=== PATIENT | male | born 1955 | race Caucasian/White ===

== ENCOUNTER → 2017-09-22 | Outpatient (CLI) | payer OTHER ==
[~2017-09-22] MED LIST: ALFU1TAB2 PO; ASPI-435 PO; LSN40 PO; NIFE60TA66 PO
[2017-09-22 12:48] LABS: HEMOGLOBIN A1C 5.7 % (4.5-5.6)
[2017-09-22 12:56] LABS: ALBUMIN 3.8 gm/dl (3.4-5.0); ALT/SGPT 36 U/L (12-78); AST/SGOT 17 U/L (15-37); BLOOD UREA NITROGEN 26 mg/dl (7-18); CALCIUM 8.7 mg/dl (8.5-10.1); CARBON DIOXIDE 25 mmol/L (21-32); CHOLESTEROL 173 mg/dl (0-200); CREATININE 1.44 mg/dl (0.60-1.40); GLUCOSE 98 mg/dl (70-99); POTASSIUM 3.9 mmol/L (3.5-5.1); SODIUM 140 mmol/L (136-145)
[2017-09-22 13:14] LABS: ALKALINE PHOSPHATASE 76 U/L (45-117); LDL CHOLESTEROL CALCULATED 105 mg/dl; TOTAL PROTEIN 7.6 gm/dl (6.4-8.2)
== END | disposition home or self-care (01) ==
LOC: C.LAB1850 10:43
PROVIDERS: ATTEND Internal Medicine
DX: I10 Essential (primary) hypertension (principal); R73.01 Impaired fasting glucose; R35.8 Other polyuria; Z11.59 Encounter for screening for other viral diseases

== ENCOUNTER 2020-05-14 10:25 | Observation (INO) ==
--- NOTE | 2020-04-11 14:57 | PAT Medication Instructions ---
Medication Instructions Date of Service April 11, 2020 Home Medications Medication Instructions Recorded lisinopril 40 mg tablet 40 mg PO DAILY #90 tab 10/17/19 nifedipine 90 mg tablet,extended 90 mg PO DAILY #90 tab 10/17/19 release 24 hr alfuzosin 10 mg tablet,extended 10 mg PO DAILY #90 tab 03/07/20 release 24 hr lisinopril 40 mg tablet 40 mg PO DAILY nifedipine 90 mg tablet,extended release 24 hr 90 mg PO DAILY alfuzosin 10 mg tablet,extended release 24 hr 10 mg PO DAILY calcium 600 mg PO QAM cholecalciferol (vitamin D3) [Vitamin D3] 125 mcg PO QAM magnesium 250 mg PO QAM omega-3 fatty acids-vitamin E [Fish Oil] 1 cap PO QAM vitamin B complex 1 tab PO QAM zinc 25 mg PO QAM STOP taking 2 weeks before surgery omega-3 fatty acids-vitamin E [Fish Oil] 1 cap PO QAM DO NOT take the morning of surgery calcium 600 mg PO QAM cholecalciferol (vitamin D3) [Vitamin D3] 125 mcg PO QAM magnesium 250 mg PO QAM vitamin B complex 1 tab PO QAM zinc 25 mg PO QAM Take evening before surgery lisinopril 40 mg tablet 40 mg PO DAILY nifedipine 90 mg tablet,extended release 24 hr 90 mg PO DAILY alfuzosin 10 mg tablet,extended release 24 hr 10 mg PO DAILY Nothing to eat or drink after midnight. Other Notes If you have any questions please call us at [phone] or [phone] or [phone] or [phone]
--- NOTE | 2020-04-15 09:30 | Anesthesiology Consultation ---
Date of Service April 15, 2020 Assessment & Plan (1) Encounter for pre-operative examination: COVID Status: As of 04/15 assessment, patient denies travel to endemic area, known exposure/sick contacts, or symptoms of COVID19. Patient instructed that they and their household members must follow strict social distancing guidelines, wear a mask in public and avoid travel for 14 days prior to surgery. Preoperative COVID19 testing to be completed prior to surgery per surgeon's arra ngements. Patient made aware to self-isolate as much as possible between COVID testing and surgery. Chart Review Chart Review: Acceptable Risk for Surgery and Patient seen in Pre Admission Testing Teaching & Discussion Instructed NPO after midnight before surgery, except medications with 15 cc of water. Medication instructions provided according to the PAT guidelines. History Surgery Operation Date: 05/14/20 08:50 Proposed Procedures p Right Total Hip Arthroplasty - Dino Thomas MD Height/Weight Height: 5 ft 9.5 in Weight: 96 kg Allergies Allergy/AdvReac Type Severity Reaction Status Date / Time No Known Allergies Allergy Verified 04/09/20 14:37 Medications Home Medications Medication Instructions Recorded Confirmed Last Taken calcium 600 mg PO QAM 04/09/20 04/09/20 Unknown cholecalciferol (vitamin D3) 125 mcg PO QAM 04/09/20 04/09/20 Unknown [Vitamin D3] magnesium 250 mg PO QAM 04/09/20 04/09/20 Unknown omega-3 fatty acids-vitamin E 1 cap PO QAM 04/09/20 04/09/20 Unknown [Fish Oil] vitamin B complex 1 tab PO QAM 04/09/20 04/09/20 Unknown zinc 25 mg PO QAM 04/09/20 04/09/20 Unknown alfuzosin 10 mg PO QPM 04/15/20 Unknown lisinopril 40 mg PO QPM 04/15/20 Unknown nifedipine [Procardia XL] 90 mg PO QPM 04/15/20 Unknown Past Medical History Medical History Arthritis of right hip BPH (benign prostatic hyperplasia) Hypertension Osteoarthritis Exercise / Class Metabolic Activity II 4-5 Yardwork/Stairs/Walk up hill (Denies CP or SOB with 1 FOS) Past Family History Family History Father Alzheimer disease Hypertension Stroke Mother Heart disease Arthritis Uncle Stroke Grandfather (Paternal) Stroke Denies family history of Ovarian cancer Prostate cancer Myocardial infarction Breast cancer Colorectal cancer Past Surgical History Surgical History H/O hernia repair History of colonoscopy History of herniorrhaphy History of tooth extraction Past Anesthesia History No Hx of Anesthesia Complications and No Family Hx of Anesthesia Complications History of PONV No Hx of PONV and No Hx of Motion Sickness Social History Smoking Status: Former smoker tobacco type: cigarettes Do You Dip or Chew Tobacco: No Smoking End Date: 25 YEARS AGO Hx Alcohol Use: Yes Alcohol type: beer and wine alcohol intake frequency: a few times a month Hx Substance Use: No substance use type: does not use Review of Systems Pt denies any recent chest pain, shortness of breath, palpitations, cough, fever, URI, or uncontrolled acid reflux. Physical Exam Vital Signs BP: 144/91 P: 67bpm SPO2: 97% RA T: 98.6 F R: 12 ENMT Mouth: + dentition abnormality (many missing molars), + dentures (upper partial) and + macroglossia; no chipped teeth and no loose teeth Thyromental Distance: > or= 3.5 Finger Breadths Mallampati Class: II Neck normal visual inspection and + limited neck extension (mildly); no facial hair Respiratory normal respiratory effort Auscultation: lungs clear to auscultation bilaterally Cardiovascular Rate/Rhythm: regular rate and regular rhythm Heart Sounds: no murmur Testing Laboratory Results 04/15/20 09:44 04/15/20 09:44 PT 10.3 Seconds (9.0-12.0) 04/15/20 09:44 INR 1.0 (0.9-1.1) 04/15/20 09:44 APTT 27.6 Seconds (21.0-31.0) 04/15/20 09:44 Blood Type O Negative 04/15/20 09:44 Antibody Screen NEGATIVE 04/15/20 09:44 Electrocardiogram Date: 04/15/20 Findings: + NSR @ (60bpm) Left axis deviation. Chest X-Ray Date: 04/15/20 Findings: + NAD
--- NOTE | 2020-04-15 10:05 | XRay Report ---
TWO VIEW CHEST CLINICAL HISTORY: Preoperative examination. FINDINGS: PA and lateral chest radiographs are obtained. No prior studies are available for compariso n at the time of dictation. The cardiomediastinal silhouette is unremarkable. There is mild bibasila r scarring/atelectasis. The lungs and pleural spaces are otherwise clear. There is no pneumothorax. T he bony thorax appears intact. IMPRESSION: No active disease in the chest. ACT 112: Negative or not required by law. Electronically signed by: Ayush Alexander M.D. 04/15/2020 10:03 AM
[2020-04-15 10:41] LABS: Basophils # (auto) 0.03 K/uL (0-0.2); Basophils % (auto) 0.4 %; Eosinophils # (auto) 0.09 K/uL (0-0.5); Eosinophils % (auto) 1.3 %; Hematocrit (blood only) 44.6 % (42-52); Hemoglobin 14.4 g/dL (14.0-18.0); Immature Granulocytes # (auto) 0.01 K/uL (0.00-0.02); Immature Granulocytes % (auto) 0.1 %; Lymphocytes # (auto) 1.96 K/uL (1.2-3.4); Lymphocytes % (auto) 27.6 %; Mean Corpuscular Hemoglobin 30.1 pg (25-34); Mean Corpuscular Hgb Conc 32.3 g/dL (32-36); Mean Corpuscular Volume 93.3 fL (80-100); Monocytes # (auto) 0.63 K/uL (0.11-0.59); Monocytes % (auto) 8.9 %; Neutrophils # (auto) 4.39 K/uL (1.4-6.5); Neutrophils % (auto) 61.7 %; Platelet Count 265 K/uL (130-400); RDW Coefficient of Variation 13.6 % (11.5-14.5); RDW Standard Deviation 46.4 fL (36.4-46.3); Red Blood Count 4.78 M/uL (4.7-6.1); White Blood Count 7.11 K/uL (4.8-10.8)
[2020-04-15 10:50] LABS: BUN Creatinine Ratio 15.4 (10-20); Calcium 8.8 mg/dl (8.5-10.1); Creatinine Clr Calc Pharmacy 63.1 ml/min; Est GFR (African American) 65.8; Est GFR (Non-African American) 56.7; Potassium 4.1 mmol/L (3.5-5.1)
[2020-04-15 11:04] LABS: Partial Thromboplastin Time 27.6 Seconds (21.0-31.0); Prothrombin Time 10.3 Seconds (9.0-12.0)
--- NOTE | 2020-04-15 17:01 | Electrocardiogram Report ---
Test Reason : Blood Pressure : / mmHG Vent. Rate : 060 BPM Atrial Rate : 060 BPM P-R Int : 166 ms QRS Dur : 114 ms QT Int : 440 ms P-R-T Axes : 065 -39 036 degrees QTc Int : 440 ms Normal sinus rhythm Left axis deviation Abnormal ECG No previous ECGs available Confirmed by Joseph Hanley ([id number]) on 04/15/2020 5:01:02 PM Referred By: Dino Thomas Confirmed By:Jun Hanley
--- NOTE | 2020-05-10 14:03 | History and Physical Report ---
DATE OF ADMISSION: 05/14/2020 CHIEF COMPLAINT: Right hip pain and discomfort and stiffness. 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 He has about a 2-year history of gradually increasing right hip pain and discomfort that has gotten worse particularly over the past year. Symptoms were initially pretty manageable, gotten significantly worse to the point where he is having trouble walking any distance. He did see a chiropractor, which did not really help at all. He limps pretty much all the time and more as the day goes on. He goes to [employer] meetings and has difficulty getting from place to place due to the walking required. He has been through therapy, which has not helped either. He has previously played golf, but cannot do that due to his hip pain. NSAIDs provided minimal relief. He would like to have his right hip replaced. PAST MEDICAL HISTORY: Hypertension. PAST SURGICAL HISTORY: Includes herniorrhaphy. ALLERGIES: None. CURRENT MEDICATIONS: Include various anti-inflammatories. SOCIAL HISTORY: A 65-year-old male. He is a semi-retired field sales associate. Lives in [place]. He is . One child. Rare alcohol intake. FAMILY HISTORY: Significant for heart disease and blood clots. REVIEW OF SYSTEMS: Negative for diabetes, neurologic problem, vascular problem, bleeding disorders. No chest pain or shortness of breath. No history of DVT or PE. PHYSICAL EXAMINATION: GENERAL: Shows a pleasant, middle-aged male, looks to be in good health. HEENT: Benign. NECK: Supple, no lymphadenopathy. LUNGS: Clear to auscultation. HEART: Has a regular rate and rhythm. ABDOMEN: Soft, nontender, nondistended. EXTREMITIES: Grossly neurovascularly intact except as follows: Examination of the right hip revealed patient walks with a bit of a limp. Leg lengths clinically appear pretty equal. He has got a very stiff hip with internal rotation to neutral, which re-creates pain. About 10-15 degrees of external rotation. Negative straight leg raise. No knee effusion. He is neurologically intact. X-RAYS: X-rays of the right hip were reviewed. It shows advanced right hip DJD. He has got complete loss of his superior joint space. He has got [id number] disease. He has got subchondral sclerosis and cystic changes on both sides of the joint. ASSESSMENT: A 65-year-old male with a 2-year history of increasing right hip pain and discomfort consistent with advanced hip arthritis. He has failed all conservative measures and would like to have his hip replaced. PLAN: We will take him to the operating room and do right total hip replacement. The risks and benefits of this procedure were explained to the patient including but not limited to DVT, PE, , infection, neurological injury, vascular injury, bleeding problems, dislocation, fracture, leg length inequality, nerve palsy, need for revision surgery. The patient understands and desires to proceed. Informed consent was obtained.
[~2020-05-14 10:25] MED LIST changes: +ACETAMINOPHEN 500 MG TAB PO SCH; -ALFU1TAB2 PO; -ASPI-435 PO; +BUPIVACAINE 0.5 % 5 MG/1 ML PF 10ML VIAL ONE; +FAMOTIDINE 20 MG TAB PO SCH; +GABAPENTIN 900 MG DOSE PO SCH; +LR 500ML BOLUS, THEN 15ML/HR IV SCH; +LR 60ML/HR IV SCH; -LSN40 PO; +METOCLOPRAMIDE HCL 10 MG TABLET PO SCH; +MIDAZOLAM HCL 1 MG/ML 2ML VIAL ONE; +MoRPHine SULFATE PF 1 MG/ML 10 ML AMP/VIAL ONE; -NIFE60TA66 PO; +TRANEXAMIC ACID 1,000 MG **IV Pre-op IV SCH; +ceFAZolin 2000MG 2,000 MG/15 ML SYR IV SCH; +fentaNYL citrate 100 MCG/2 ML VIAL ONE
--- NOTE | 2020-05-14 11:10 | History & Physical Bridge Note ---
Date of Service May 14, 2020 History & Physical Bridge Note I have examined the patient, reviewed the History & Physical and in the interval since the performance of the History & Physical I have noted the following changes of clinical significance: no changes noted
[2020-05-14] MEDS ORDERED: EPINEPHrine INJ 1 MG/ML AMP ONE (13:13)
[2020-05-14] MEDS ORDERED: MoRPHine SULFATE PF 1 MG/ML 10 ML AMP/VIAL INT SPINAL ONE (13:13)
[2020-05-14] MEDS ORDERED: diphenhydrAMINE 50 MG/ML VIAL IV PRN (13:13)
[2020-05-14] MEDS ORDERED: LACTATED RINGER'S 500 ML IV PRN (13:13)
[2020-05-14] MEDS ORDERED: ONDANSETRON INJ 2 MG/ML 2 ML VIAL IV PRN ×2 (13:13→16:17)
[2020-05-14] MEDS ORDERED: KETOROLAC 30 MG/ML VIAL IV PRN (13:13)
[2020-05-14] MEDS ORDERED: BACITRACIN INJ 50,000 UNIT VIAL ONE (13:13)
[2020-05-14] MEDS ORDERED: NALOXONE HCL 1 MG in SODIUM CHLORIDE 0.9% 1000ML 1,000 ML IV PRN (13:13)
[2020-05-14] MEDS ORDERED: NALOXONE HCL 0.4 MG/1 ML VIAL/CARP IV PRN ×2 (13:13→16:17)
[2020-05-14] MEDS ORDERED: MEPERIDINE HCL 25 MG/ML CARP/VIAL IV PRN (13:13)
[2020-05-14] MEDS ORDERED: ePHEDrine sulfate 50 MG/ML AMP IV PRN (13:13)
[2020-05-14] MEDS ORDERED: NALOXONE HCL 0.08 MG in SYRINGE 1.8 ML IV PRN (13:13)
[2020-05-14] MEDS ORDERED: BUPIVACAINE 0.5 % 5 MG/1 ML MPF 30ML VIAL ONE (13:14)
[2020-05-14] MEDS ORDERED: DC INTRASPINAL MORPHINE SCH (13:15)
[2020-05-14] MEDS ORDERED: SODIUM CHLORIDE 0.9% 1000ML 1,000 ML IV SCH (13:15)
[2020-05-14] MEDS ORDERED: NO NARCOTICS OR SEDATIVES SCH (13:15)
[2020-05-14] MEDS ORDERED: ePHEDrine sulfate 50 MG/ML SYR ONE ×2 (13:46→14:45)
[2020-05-14] MEDS ORDERED: PHENYLEPHRINE 100MCG/ML 5ML SYR ONE (13:46)
[2020-05-14] MEDS ORDERED: PROPOFOL IV EMULSION 10 MG/ML 20 ML VIAL IV ONE (14:55)
--- NOTE | 2020-05-14 15:09 | Post Operative Brief Note ---
PG Immediate Post Op with CF Date of Surgery May 14, 2020 Pre & Post Diagnosis Operation Date: 05/14/20 12:30 Pre-Op Diagnosis: Right Hip Degenerative Joint Disease Post-Op Diagnosis: Right Hip Degenerative Joint Disease I identified the patient and participated in the time-out.: Yes Procedure Operation Date: 05/14/20 12:30 Actual Procedures p Right Total Hip Replacement(Right) - Dino Thomas MD Surgeon Dino Thomas MD Electronic Funds Transfer Coordinator Wili, PAC Estimated Blood Loss 200 Findings Consistent with Post-Op Diagnosis Fluids 1200 cc Specimens Specimen Description: A. Right Femoral Head Drains Mera Catheter Anesthesia Type Spinal MAC Complications none Disposition Accompanied Patient To Recovery: Yes Disposition: Recovery Room
--- NOTE | 2020-05-14 15:30 | Anesthesiology Progress Note ---
Date of Service May 14, 2020 Anesthesia Post Procedure Vital Signs Vital Signs: Temp Pulse Pulse Resp BP Pulse Ox 05/14/20 15:20 96.8 F L 75 16 120/63 99 05/14/20 12:08 98.8 F 58 L 20 147/88 H 99 05/14/20 11:07 97.9 F 64 20 139/76 99 Pain Intensity Right Hip: Pain Intensity: 3 Transfer of Care Handoff Completed per policy Notes Mental Status: alert / awake / arousable and participated in evaluation Patient Amnestic to Procedure: Yes Nausea / Vomiting: adequately controlled Pain: adequately controlled Airway Patency, RR, SpO2: stable & adequate BP & HR: stable & adequate Hydration State: stable & adequate Neuraxial Anesthesia: was administered and sensory block is resolving Anesthetic Complications: no major complications apparent and Pt Satisfied with anesthetic care
--- NOTE | 2020-05-14 16:14 | XRay Report ---
SINGLE VIEW PELVIS; SINGLE VIEW RIGHT HIP CLINICAL HISTORY: Postoperative examination. FINDINGS: AP portable views of the hips and pelvis with a crosstable lateral portable view of the rig ht hip are obtained. A bipolar right hip arthroplasty is in near-anatomic alignment. At least 2 any ical lag screws transfix the acetabular cup. No acute fracture is identified. There are expected post operative changes overlying the right hip including skin clips, subcutaneous gas, and soft tissue swe lling. Mild osteophytic arthritic changes noted involving the left hip. IMPRESSION: Expected postoperative findings status post right hip arthroplasty. No acute fracture is seen. ACT 112: Negative or not required by law. Electronically signed by: Ayush Alexander M.D. 05/14/2020 4:12 PM
[2020-05-14] MEDS ORDERED: METOCLOPRAMIDE HCL INJ 5 MG/ML 2 ML VIAL IV PRN (16:17)
[2020-05-14] MEDS ORDERED: bisacodyL 10 MG SUPP PR PRN (16:17)
[2020-05-14] MEDS ORDERED: TAMSULOSIN HCL 0.4 MG CAP PO PRN (16:17)
[2020-05-14] MEDS ORDERED: MAGNESIUM HYDROXIDE SUSP 30 ML UDC PO PRN (16:17)
[2020-05-14] MEDS ORDERED: ALUMINUM/MAGNESIUM SUSP 30 ML UDC PO PRN (16:17)
--- NOTE | 2020-05-14 17:25 | Operative Report ---
Post Operative Report Pre & Post Diagnosis Operation Date: 05/14/20 12:30 Pre-Op Diagnosis: Right Hip Degenerative Joint Disease Post-Op Diagnosis: Right Hip Degenerative Joint Disease I identified the patient and participated in the time-out.: Yes Procedure Operation Date: 05/14/20 12:30 Actual Procedures p Right Total Hip Replacement(Right) - Dino Thomas MD Surgeon Dino Thomas MD Recreation Program Specialist Wili, PAC Estimated Blood Loss 200 Findings Consistent with Post-Op Diagnosis Operative findings revealed advanced right hip DJD with extensive grade 4 [id number] disease of the femoral head and acetabulum. He had a large inferior acetabular osteophytes. He had osteophytes around the femoral neck. He had a Large medial osteophyte to the acetabulum. Moderate-sized joint effusion. Some moderate synovitis. Fluids 1200 cc. Specimens Right femoral head sent for pathology. Drains None. Anesthesia Type Spinal MAC Complications none Disposition Accompanied Patient To Recovery: Yes Disposition: Recovery Room Indications Patient is a 65-year-old gentleman who is had a several year year history of gradually increasing and progressive right hip pain discomfort. This became unresponsive conservative care. Is really limit his activities as he was pretty much limping all the time. He could not walk any long distances. X-rays showed advanced hip arthritis. He elected proceed with surgical treatment. Description of Procedure Operative implants consist of: 1. Biomet G7 size 56 mm acetabular shell. 2. 6.5 cancellous acetabular screws 135 mm in length and 1 of 30 mm length. 3. Hardin hole eliminator. 4. Highly cross-linked polyethylene liner with a 56 mm outer diameter and 36 mm inner diameter. 5. [place] Corail size 14 KLA femoral stem. 6. +5/36 mm ceramic articular ball. Patient was taken to the operating identified and placed on the operating table supine position but all contact areas were appropriately padded. IV antibiotics arrived by anesthesia team. A spinal anesthetic had been implemented in the holding area. Mera catheter was placed in sterile fashion. The patient was then placed in the left lateral decubitus position. An axillary roll was placed. A Stulberg hip positioner was used for positioning. The right hip and leg were then prepped were prepped and draped in the usual sterile fashion. A posterior lateral approach to the right hip was then performed through a curvilinear incision centered over the greater trochanter. Sharp dissection was carried through subcutaneous tissue down to level the IT band gluteal fascia. The IT band gluteal fascia were then incised longitudinally in line with skin incision. The underlying greater bursa was excised. The piriformis and external rotators were tagged and taken off the posterior aspect of hip joint capsule. Great care was taken throughout the procedure protect the sciatic nerve at all times. A posterior capsulotomy was then performed leaving a large flap for later repair. Hip was internally rotated and dislocated. Femoral neck osteotomy cut was made with Final Cut about 10 mm above the lesser trochanter. Femoral head was removed and sent for pathology. The femur was retracted anteriorly. Attention drawn the acetabulum. The acetabular labrum was excised. It was largely calcified. There was some loose bodies that were removed from the joint as well. The medial osteophyte was removed. The pulmonary fat was resected. Sequential reaming the acetabular was then performed begin with size 47 progressing up to 55. I did reamed with a 56 reamer slightly and then placed a 56 mm G7 acetabular shell in about 40 degrees lateral opening and 20 degrees of anteversion. It was fixed with two 6.5 cancellus acetabular screws. I did remove some inferior osteophyte. A trial liner was placed. Attention drawn the femur. The proximal femur was entered with a cookie-cutter followed by canal finder. I then broached beginning with size 8 and progressing up to 14. We got pretty good fit of 14. I was not sure I could fit a larger proximal segment. We used a calcar reamer to smooth and off the calcar. I then trialed the hip and the +5 articular ball seem to recreate soft tissue tension appropriately, recreate leg lengths and was fully stable in full extension and external rotation flexion to 9 degrees internal rotation over [address] I elect to place these implants. All trial implants were removed. An apex eliminator is placed but highly cross- linked polyethylene liner was placed. A Mel KLA size 14 femoral stem was impacted in position. A +5/36 mm articular ball was placed. Hip was located once again found to be stable. Attention drawn toward closing. The wound was irrigated with copious amounts of pulsatile lavage solution. I did inject locally with 60 cc of absent Marcaine with epinephrine. The posterior capsule and external rotators were then repaired through drill holes in the posterior trochanter with #2 Tycron suture. The IT band gluteal fascia then closed in 1 PDS suture running fashion. Subcutaneous tissue was then closed in 2 layers with a deep layer #1 Vicryl suture and subcutaneous tissues with 2 Dexon suture in a buried interrupted fashion. Skin was closed skin nicole. Leg was then cleaned and dried and sterile dressing was Xeroform, 4 x 4's, sterile ABD pad and foam tape was applied. Patient then transferred to the recovery room in stable condition. The patient tolerated the procedure well and there were no complications. Mor Rasheed, my physician medical staff assistant, was present for the entire procedure. His assistance was essential and required for appropriate patient positioning, prepping and draping, surgical exposure, performing the technical details of the operation, placement the implants, closure of the wound, and placement of the sterile bandage. I attest to the content of the Intraoperative Record and any orders documented therein. Any exceptions are noted below.
[2020-05-14] MEDS: Scopolamine CHECK PATCH PLACEMENT SCH (17:33)
[2020-05-14] MEDS: SODIUM CHLORIDE 0.9% 1000ML 1,000 ML IV SCH (19:06)
[2020-05-14] MEDS: FERROUS GLUCONATE 324 MG TAB PO SCH (19:07)
[2020-05-14] MEDS: KETOROLAC TROMETHAMINE 15 MG/ML VIAL IV SCH ×2 (19:07→22:10)
[2020-05-14] MEDS: ASCORBIC ACID 500 MG TAB PO SCH (19:08)
[2020-05-14] MEDS: ASPIRIN 81 MG ECTAB PO SCH (20:35)
[2020-05-14] MEDS: ACETAMINOPHEN 500 MG TAB PO SCH (20:35)
[2020-05-14] MEDS: DOCUSATE SODIUM 100 MG CAP PO SCH (20:36)
[2020-05-14] MEDS: ceFAZolin 2000MG 2,000 MG/15 ML SYR IV SCH (20:38)
[2020-05-14] MEDS ORDERED: ALFUZOSIN HCL 10 MG TAB PO SCH (21:00)
[2020-05-14] MEDS ORDERED: NIFEdipine EXTENDED REL 30 MG TABCR PO SCH (21:00)
[2020-05-14] MEDS ORDERED: lisinopril 40 MG TAB PO SCH (21:00)
[2020-05-14] MEDS ORDERED: SENNA 8.6 MG TAB PO SCH (21:00)
[2020-05-14] MEDS ORDERED: TRANEXAMIC ACID / 0.7% NACL 1,000 MG/100 ML BAG IV SCH (21:15)
[2020-05-15] MEDS: Scopolamine CHECK PATCH PLACEMENT SCH ×2 (00:14→08:40)
[2020-05-15] MEDS: SODIUM CHLORIDE 0.9% 1000ML 1,000 ML IV SCH (04:55)
[2020-05-15] MEDS: KETOROLAC TROMETHAMINE 15 MG/ML VIAL IV SCH ×2 (05:32→11:31)
[2020-05-15] MEDS: ACETAMINOPHEN 500 MG TAB PO SCH ×2 (05:33→13:54)
[2020-05-15] MEDS: ceFAZolin 2000MG 2,000 MG/15 ML SYR IV SCH (05:33)
[2020-05-15] MEDS ORDERED: diphenhydrAMINE Capsule 25 MG CAP PO PRN (07:13)
[2020-05-15] MEDS ORDERED: HYDROmorphone INJ 0.5 MG/0.5 ML SYR IV PRN (07:13)
[2020-05-15] MEDS ORDERED: traMADol HCL 50 MG TABLET PO PRN (07:13)
[2020-05-15 07:48] LABS: Basophils # (auto) 0.02 K/uL (0-0.2); Basophils % (auto) 0.2 %; Eosinophils # (auto) 0.04 K/uL (0-0.5); Eosinophils % (auto) 0.4 %; Hematocrit (blood only) 38.3 % (42-52); Hemoglobin 12.6 g/dL (14.0-18.0); Immature Granulocytes # (auto) 0.01 K/uL (0.00-0.02); Immature Granulocytes % (auto) 0.1 %; Lymphocytes # (auto) 1.55 K/uL (1.2-3.4); Lymphocytes % (auto) 14.6 %; Mean Corpuscular Hemoglobin 30.2 pg (25-34); Mean Corpuscular Hgb Conc 32.9 g/dL (32-36); Mean Corpuscular Volume 91.8 fL (80-100); Mean Platelet Volume 10.6 fL (7.4-10.4); Monocytes # (auto) 0.99 K/uL (0.11-0.59); Monocytes % (auto) 9.3 %; Neutrophils # (auto) 7.99 K/uL (1.4-6.5); Neutrophils % (auto) 75.4 %; Platelet Count 210 K/uL (130-400); RDW Coefficient of Variation 13.8 % (11.5-14.5); RDW Standard Deviation 45.7 fL (36.4-46.3); Red Blood Count 4.17 M/uL (4.7-6.1)
[2020-05-15 08:13] LABS: BUN Creatinine Ratio 14.3 (10-20); Calcium 8.3 mg/dl (8.5-10.1); Creatinine Clr Calc Pharmacy 73.3 ml/min; Est GFR (Non-African American) 66.4; Potassium 3.4 mmol/L (3.5-5.1)
[2020-05-15 08:38] VITALS: PULSE 75; TEMP 97.9; O2SAT 92
[2020-05-15] MEDS: ASCORBIC ACID 500 MG TAB PO SCH (08:38)
[2020-05-15] MEDS: FERROUS GLUCONATE 324 MG TAB PO SCH (08:38)
[2020-05-15] MEDS: DOCUSATE SODIUM 100 MG CAP PO SCH (08:39)
[2020-05-15] MEDS: ASPIRIN 81 MG ECTAB PO SCH (08:40)
[2020-05-15] MEDS ORDERED: CALCIUM CARBONATE 1250MG TAB PO SCH (09:00)
[2020-05-15] MEDS ORDERED: NON-FORMULARY MEDICATION (Magnesium 250 mg Tablet) PO SCH (09:00)
[2020-05-15] MEDS ORDERED: MULTIVITAMIN TAB PO SCH (09:00)
[2020-05-15] MEDS ORDERED: ZINC SULFATE 220 MG CAPSULE PO SCH (09:00)
[2020-05-15] MEDS ORDERED: VITAMIN B COMPLEX TAB PO SCH (09:00)
[2020-05-15] MEDS ORDERED: CHOLECALCIFEROL 1,000 UNITS 25 MCG TAB PO SCH (09:00)
[2020-05-15 15:18] VITALS: BP 135/73
--- NOTE | 2020-05-15 15:45 | Progress Notes ---
DATE: 05/15/2020 SUBJECTIVE: A 65-year-old gentleman postop day 1 from a right hip replacement. He is doing pretty well. Therapy went pretty well. No chest pain or shortness of breath. Pain has been controlled. Not feeling dizzy or lightheaded. OBJECTIVE: VITAL SIGNS: Temperature is 36.6. Vital signs stable. GENERAL: Shows a pleasant, middle-aged male. He is lying in bed, looks pretty comfortable. EXTREMITIES: Examination of the right leg reveals the dressing to be clean, dry and intact. Leg lengths are equal. His leg is well aligned. He can dorsiflex and plantarflex his foot appropriately. He is neurologically intact. Thigh is soft and supple. LABORATORY DATA: Hemoglobin is 12.6. Hematocrit 38.3. Electrolytes are stable. ASSESSMENT: A 65-year-old gentleman postop day 1 from right hip replacement, doing pretty well. His pain is controlled. Hip is located. He is neurologically intact. PLAN: 1. DVT prophylaxis including thigh-high TEDs, SCDs, and aspirin twice a day. 2. PT/OT. Weight bear as tolerated. Right total knee protocol. 3. Pain control, doing okay with current pain regimen. 4. Disposition: He is planning to be discharged to home with some home health.
[2020-05-18] MEDS ORDERED: diphenhydrAMINE Capsule 25 MG CAP PO PRN (07:13)
--- NOTE | 2020-05-20 14:56 | Discharge Summary ---
Date of Service May 20, 2020 Admission HPI Per Admitting Provider Documented in the H & P Admission Exam (Per Admitting) Constitutional Documented in the H & P Discharge Data Consultations 05/15/20 08:00 Consult Case Management - Discharge Planning Routine Procedures Performed Operation Date: 05/14/20 12:30 Actual Procedures p Right Total Hip Replacement(Right) - Dino Thomas MD Hospital Course (1) Status post total hip replacement, right: This patient is a 65 year old male admitted on 05/14/20 and underwent total hip arthroplasty. He tolerated the procedure well and there were no complications. Transferred to the PACU post op and later to the orthopedic floor for further care. He was given ancef for antibiotic prophylaxis. HE was also g iven RITU stockings, SCDs, and aspirin for DVT prophylaxis. Hemoglobin, hematocrit, and vital signs were monitored during his hospital stay and remained stable. Did not require any blood transfusions. There were no complications during his hospital stay. By post op day #1 the patient was tolerating a regular diet, pain was reasonably controlled with oral pain medicine, and he was participating in physical therapy. On post op day #2 the patient was discharged home and set up with home health care. He was given printed discharge instructions including prescriptions for extra strength tylenol, aspirin, and tramadol. Continue physical therapy, weight bearing as tolerated. Continue RITU stockings. Continue hip precautions. Follow up approximately 2 weeks post op or sooner if there are problems or concerns. Coding Level of Care Code None Diagnoses Status post total hip replacement, right Z96.641
== END 2020-05-15 16:07 | disposition home health service (06) ==
LOC: 3N 10:25 → ASU 10:25